=== PATIENT | female | born 1985 | race Caucasian/White ===

== ENCOUNTER 2022-05-28 13:49 | Emergency (ER) | payer OTHER ==
[~2022-05-28] VITALS: Ht 152.4 cm; Wt 56.5 kg
[2022-05-28 13:57] VITALS: BP 107/88
--- NOTE | 2022-05-28 14:19 | NUR ---
PATIENT LEFT WITHOUT BEING SEEN BY . NO FURTHER CARE PROVIDED FOR PATIENT.
== END 2022-05-28 14:19 | disposition left against medical advice (07) ==
LOC: MED 13:49
DX: R42 Dizziness and giddiness (principal); Z53.21 Procedure and treatment not carried out due to patient leaving prior to being seen by health care provider
CPT/HCPCS: 99281